=== PATIENT | female | born 1975 | race Caucasian/White ===

== ENCOUNTER 2019-05-27 00:12 | Emergency (ER) | payer BC ==
[~2019-05-27] VITALS: Ht 172.7 cm; Wt 98.9 kg
[2019-05-27 00:20] VITALS: Ht 172.7 cm; Wt 98.9 kg
[2019-05-27 04:36] VITALS: BP 91/55
== END 2019-05-27 04:36 | disposition home or self-care (01) ==
LOC: ED 00:12
DX: R42 Dizziness and giddiness (principal); R11.2 Nausea with vomiting, unspecified; H93.12 Tinnitus, left ear
CPT/HCPCS: J8597; Q0162

== ENCOUNTER 2019-05-29 13:49 | Emergency (ER) | payer BC ==
[~2019-05-29] VITALS: Ht 157.5 cm; Wt 98.4 kg
[2019-05-29 14:12] VITALS: Ht 157.5 cm; Wt 98.4 kg
[2019-05-29 17:24] LABS: BASOPHIL % 0.9 % (0-2); PLATELET COUNT 281 x10^3mcL (130-400); RED CELL DISTRIBUTION WIDTH 14.1 % (11.5-14.5)
[2019-05-29 17:41] LABS: CALCIUM 9.1 mg/dL (8.5-10.1); CARBON DIOXIDE 24.7 mmol/L (21-32); CHLORIDE SERUM 105 mmol/L (98-107); CREATININE SERUM 0.9 mg/dL (0.6-1.0); GFR1 > 60 mL/min; GLUCOSE SERUM 114 mg/dL (74-106); POTASSIUM SERUM 4.2 mmol/L (3.5-5.1); SODIUM SERUM 136 mmol/L (136-145)
[2019-05-29 17:46] LABS: ALKALINE PHOSPHATASE 55 U/L (46-116); ALT/SGPT 16 U/L (14-59); AST/SGOT 12 U/L (15-37); BILIRUBIN TOTAL 0.19 mg/dL (0.20-1.00); TOTAL PROTEIN, SERUM 7.3 g/dL (6.4-8.2)
[2019-05-29 17:47] LABS: ALBUMIN 3.1 g/dL (3.4-5.0)
[2019-05-29 20:28] VITALS: BP 111/47
== END 2019-05-29 20:28 | disposition home or self-care (01) ==
LOC: ED 13:49
PROVIDERS: Emergency Medicine
DX: R42 Dizziness and giddiness (principal); N39.0 Urinary tract infection, site not specified
CPT/HCPCS: 36415